=== PATIENT | female | born 1940 | race Two or more races ===

== ENCOUNTER 2017-04-05 08:14 | Day surgery (SDC) | payer OTHER, BC ==
[~2017-04-05] VITALS: Ht 149.9 cm; Wt 69.2 kg
[~2017-04-05 08:14] MED LIST: BENA20TA48 PO; METF500T4 PO; PROC5TAB29 PO
[2017-04-05 09:31] VITALS: Ht 149.9 cm; Wt 69.2 kg
[2017-04-05] MEDS ORDERED: METF500T4 PO (09:41)
[2017-04-05] MEDS ORDERED: GLIMEPRIDE (09:41)
[2017-04-05] MEDS ORDERED: ROSU5TAB8 PO (09:41)
[2017-04-05] MEDS ORDERED: HCTZ BC (09:41)
[2017-04-05] MEDS ORDERED: BENA20TA48 PO (09:41)
[2017-04-05] MEDS ORDERED: PROPOFOL 40 ML ONE (09:58)
[2017-04-05] MEDS ORDERED: LIDOCAINE 2% (SDV) 5 ML INJ ONE (09:58)
[2017-04-05 10:04] VITALS: BP 134/72; PULSE 75; RESP 16
--- NOTE | 2017-04-05 11:08 | GILP ---
DATE OF PROCEDURE: NAME OF PROCEDURE: Colonoscopy. SURGEON: Nika Love MD PREOPERATIVE DIAGNOSIS: Screening colonoscopy. POSTOPERATIVE DIAGNOSES 1. Colonoscopy all the way to the cecum. 2. Internal hemorrhoids. 3. No colon neoplasm was identified. INDICATION FOR THE PROCEDURE: Ms. Fawn Kim is a 77-year-old female patient who was schedule d for screening colonoscopy. The procedure and possible complications are well explained to the patient, she understood and conse nted to the procedure. DESCRIPTION OF PROCEDURE: Under the influence of anesthesia, the colonoscope was carefully introduc ed in the rectum and under direct vision, it was advanced all the way to the cecum. FINDINGS: The patient had internal hemorrhoids. No colon neoplasm was identified. She tolerated the procedure very well and there was no complication from the procedure. At the end of the procedure, she was awake with stable vital signs and she was discharged home to the care of h er family. IMPRESSION: 1. Colonoscopy all the way to the cecum. 2. Internal hemorrhoids. 3. No colon neoplasm was identified. PLAN: Because of the patient's age, she does not need another screening colonoscopy. Dictated By: NIKA ROJAS/WALI Conf#: [id number] DID#: [id number]
[2017-04-05 11:33] VITALS: BP 117/59; PULSE 66; RESP 15
== END 2017-04-05 14:22 | disposition home or self-care (01) ==
LOC: GIL 08:14
PROVIDERS: ATTEND Internal Medicine Gastroenterology
DX: Z12.11 Encounter for screening for malignant neoplasm of colon (principal); K64.8 Other hemorrhoids; E11.9 Type 2 diabetes mellitus without complications; Z79.4 Long term (current) use of insulin; E78.5 Hyperlipidemia, unspecified; I10 Essential (primary) hypertension
CPT/HCPCS: 82962

== ENCOUNTER 2018-08-14 05:24 | Day surgery (SDC) | END 2018-08-14 12:50 | disposition home or self-care (01) ==